=== PATIENT | male | born 1990 | race American Indian/Alaskan Native ===

== ENCOUNTER 2018-06-22 14:27 | Inpatient (IN) | payer SELFPAY ==
[2018-06-22 15:28] LABS: Hematocrit 47.6 % (35.5-45.6); Mean Corpuscular HGB Conc 34 % (32-34); Mean Corpuscular Hemoglobin 32 pg (28-32); Mean Corpuscular Volume 95 fl (84-94); Platelet Count 377 K/mm3 (140-440); Red Blood Count 5.03 M/mm3 (3.65-5.03); Red Cell Distribution Width 13.7 % (13.2-15.2)
[2018-06-22 15:43] LABS: BUN/Creatinine Ratio 4; Blood Urea Nitrogen 4 mg/dL (9-20); Calcium 9.4 mg/dL (8.4-10.2); Hemolysis Index 13
[2018-06-22] MEDS ORDERED: VITAMIN B-1 100 MG, FOLVITE 1 MG, INFUVITE 10 ML, MAGNESIUM SULFATE 2 GM in NACL 0.9% 1... IV ONE (17:06)
[2018-06-22] MEDS ORDERED: ATIVAN IV ONE (17:07)
[2018-06-22] MEDS ORDERED: ATIVAN IV PRN ×3 (17:08)
--- NOTE | 2018-06-22 17:13 | Emergency Department Report ---
HPI - General Chief Complaint: Seizure Time Seen by Provider: 06/22/18 16:58 - HPI HPI: Room 5 The patient is a 27-year-old male presenting with a chief complaint of seizure. The patient has a history of polysubstance abuse including heavy alcohol consumption, Xanax abuse, ecstasy Nelly and cocaine. The patient states he last use Xanax approximately 2-3 days ago (he usually consumes 5 bars daily) and he last consumed alcohol yesterday (usually consumes one cup of liquor and a sixpack of beer daily). Today the patient's significant other witnessed the patient have a generalized tonoclonic seizure in the back of the car lasting approximately 2 minutes. Now the patient complains of a mild headache and pain in the right shoulder. Patient has a history of benzodiazepine/alcohol withdrawal seizures in the past Location: [facility] Duration: 2 minutes Quality: Generalized tonic-clonic Severity: Moderate Modifying factors: [see above] Context: [see above] Mode of transportation: [not driving] ED Past Medical Hx - Past Medical History Hx Seizures: Yes (benzodiazepine withdrawal seizures) - Surgical History Past Surgical History?: No - Family History Family history: no significant - Social History Smoking Status: Current Every Day Smoker (1 pack per day) Substance Use Type: Alcohol (daily. 1 cup of liquor, sixpack of beer), Cocaine , Other (Nelly, ecstasy, Xanax (5 bars daily)) ED Review of Systems ROS: Stated complaint: SEIZURE Other details as noted in HPI Constitutional: no symptoms reported Eyes: denies: eye pain ENT: denies: throat pain Respiratory: no symptoms reported Cardiovascular: denies: chest pain Endocrine: no symptoms reported Gastrointestinal: denies: abdominal pain Musculoskeletal: arthralgia Neurological: headache Physical Exam - Physical Exam Vital Signs: Vital Signs 06/22/18 14:45 Temperature 97.7 F Pulse Rate 103 H Respiratory 16 Rate Blood Pressure 118/85 O2 Sat by Pulse 99 Oximetry Physical Exam: GENERAL: The patient is well-developed well-nourished male sitting on stretcher not appearing to be in acute distress. [] HEENT: Normocephalic. Atraumatic. Extraocular motions are intact. Patient has moist mucous membranes. NECK: Supple. Trachea midline CHEST/LUNGS: Clear to auscultation. There is no respiratory distress noted. HEART/CARDIOVASCULAR: Regular. There is no tachycardia. There is no gallop rub or murmur. ABDOMEN: Abdomen is soft, nontender. Patient has normal bowel sounds. There is no abdominal distention. SKIN: There is no rash. There is no edema. There is no diaphoresis. NEURO: The patient is awake, alert, and oriented. The patient is cooperative. The patient has no focal neurologic deficits. The patient has normal speech. Cranial nerves II through XII grossly intact, no drift MUSCULOSKELETAL: There is no evidence of acute injury. ED Course Vital Signs 06/22/18 14:45 Temperature 97.7 F Pulse Rate 103 H Respiratory 16 Rate Blood Pressure 118/85 O2 Sat by Pulse 99 Oximetry ED Medical Decision Making - Lab Data Result diagrams: 06/22/18 15:05 06/22/18 15:05 - Radiology Data Radiology results: report reviewed (CT head, right shoulder x-ray), image reviewed (CT head, right shoulder x-ray) interpreted by me: Right shoulder x-ray-no acute fracture [facility] [address] [place] [address] Cat Scan Report Signed Patient: JUSTINA GREENE MR#: [id number] : 1990 Acct:[id number] Age/Sex: 27 / M ADM Date: 06/22/18 Loc: ED Attending Dr: Ordering Physician: STEPHON DYE MD Date of Service: 06/22/18 Procedure(s): CT head/brain wo con Accession Number(s): [id number] cc: STEPHON DYE MD FINAL REPORT PROCEDURE: CT head without contrast. TECHNIQUE: Computerized tomography of the head was performed without contrast material. HISTORY: Seizure. COMPARISON: No prior studies are available for comparison. FINDINGS: There is motion artifact on some of the images. The ventricles are normal in size. The loera matter and white matter appear normal. There are no mass lesions. There is no intracranial hemorrhage. The calvarium appears intact. The mastoid air cells and visualized paranasal sinuses are well aerated. IMPRESSION: Normal study. Transcribed By: [facility] Dictated By: SHABNAM HERNANDEZ MD Electronically Authenticated By: SHABNAM HERNANDEZ MD Signed Date/Time: 06/22/181914 DD/ 14 TD/ TT: 06/22/181914 Findings [facility] [address] [place] [address] XRay Report Signed Patient: JUSTINA GREENE MR#: [id number] : 1990 Acct :[id number] Age/Sex: 27 / M ADM Date: 06/22/18 Loc: ED Attending Dr: Ordering Physician: STEPHON DYE MD Date of Service: 06/22/18 Procedure(s): XR shoulder 2 +V RT Accession Number(s): [id number] cc: STEPHON DYE MD Fluoro Time In Minutes: FINAL REPORT EXAM: XR SHOULDER 2+V RT HISTORY: pain after seizure TECHNIQUE: Three views right shoulder PRIORS: None. FINDINGS: No fractures are identified. No dislocation seen. The acromioclavicular joint is intact. Adjacent bony and soft tissue structures are unremarkable. IMPRESSION: Negative shoulder series Transcribed By: ROBERT Dictated By: BRENDEN BARAHONA MD Electronically Authenticated By: BRENDEN BARAHONA MD Signed Date/Time: 06/22/181900 DD/DT : 06/22/181900 TD/TT: 06/22/181900 - Differential Diagnosis withdrawal seizures Critical care attestation.: If time is entered above; I have spent that time in minutes in the direct care of this critically ill patient, excluding procedure time. ED Disposition Clinical Impression: Benzodiazepine withdrawal, Seizure, Contusion of right shoulder Disposition: OP ADMIT IP TO THIS HOSP Is pt being admited?: Yes Condition: Fair Referrals: PRIMARY CARE, [Primary Care Provider] - 3-5 Days Time of Disposition: 19:19 (hospitalist paged (Dr Ovalle))
--- NOTE | 2018-06-22 19:01 | XRay Report ---
FINAL REPORT EXAM: XR SHOULDER 2+V RT HISTORY: pain after seizure TECHNIQUE: Three views right shoulder PRIORS: None. FINDINGS: No fractures are identified. No dislocation seen. The acromioclavicular joint is intact. Adjacent bony and soft tissue structures are unremarkable. IMPRESSION: Negative shoulder series
--- NOTE | 2018-06-22 19:16 | Cat Scan Report ---
FINAL REPORT PROCEDURE: CT head without contrast. TECHNIQUE: Computerized tomography of the head was performed without contrast material. HISTORY: Seizure. COMPARISON: No prior studies are available for comparison. FINDINGS: There is motion artifact on some of the images. The ventricles are normal in size. The loera matter and white matter appear normal. There are no mass lesions. There is no intracranial hemorrhage. The calvarium appears intact. The mastoid air cells and visualized paranasal sinuses are well aerated. IMPRESSION: Normal study.
[2018-06-22] MEDS ORDERED: SODIUM CHLORIDE FLUSH SYRINGE 10 ML IV PRN (22:36)
[2018-06-22] MEDS ORDERED: TYLENOL PO PRN (22:36)
[2018-06-22] MEDS ORDERED: ZOFRAN IV PRN (22:36)
--- NOTE | 2018-06-22 22:37 | History and Physical Report ---
History of Present Illness Date of examination: 06/22/18 History of present illness: 27-year-old man with a history of polysubstance abuse including xanax and alcohol was brought to the emergency room today because he had a seizure. His last use of Xanax was 3 days ago. Patient is now sedated, unable to give a history, review of system PAST MEDICAL HISTORY: Unknown PAST SURGICAL HISTORY: Unknown SOCIAL HISTORY: No alcohol, no drugs, tobacco FAMILY HISTORY: Unknown Medications and Allergies Allergies Allergy/AdvReac Type Severity Reaction Status Date / Time No Known Allergies Allergy Verified 06/22/18 17:29 Active Meds: Active Medications Lorazepam (Ativan) 2 mg IV Q1HR PRN PRN Reason: CIWA-Ar 8-15 Lorazepam (Ativan) 4 mg IV Q1HR PRN PRN Reason: CIWA-Ar 16-25 Lorazepam (Ativan) 4 mg IV Q15MIN PRN PRN Reason: CIWA-Ar >25 Exam - Physical Exam Narrative exam: Gen. appearance: Patient lying in bed, no apparent distress HEENT: Normocephalic, atraumatic, pupils equally round and reactive to light, unable to do extraocular movement , and no sclericterus,. No JVD or thyromegaly or nodule,neck supple, no carotid bruit ,mucous membranes moist, unable to examine oral cavity Heart: S1, S2, regular rate and rhythm Lungs: Clear bilaterally, breathing comfortable Abdomen: Positive bowel sounds, non-tender, nondistended, no organomegaly Extremity:no edema cyanosis, clubbing Skin: no rash, dry, warm Neuro: sedated - Constitutional Vitals: Temp Pulse Resp BP Pulse Ox 98 F 81 16 118/85 98 06/22/18 19:20 06/22/18 19:20 06/22/18 19:20 06/22/18 21:16 06/22/18 21:16 Results - Labs CBC & Chem 7: 06/22/18 15:05 06/22/18 15:05 Labs: Abnormal lab results 06/22/18 06/22/18 06/22/18 Range/Units 15:05 15:05 15:34 Hgb 16.0 H (11.8-15.2) gm/dl Hct 47.6 H (35.5-45.6) % MCV 95 H (84-94) fl Carbon Dioxide 17 L (22-30) mmol/L BUN 4 L (9-20) mg/dL Magnesium 2.90 H (1.7-2.3) mg/dL Total Creatine Kinase (55-170) units/L 06/22/18 Range/Units 15:34 Hgb (11.8-15.2) gm/dl Hct (35.5-45.6) % MCV (84-94) fl Carbon Dioxide (22-30) mmol/L BUN (9-20) mg/dL Magnesium (1.7-2.3) mg/dL Total Creatine Kinase 217 H (55-170) units/L - Imaging and Cardiology EKG: image reviewed Chest x-ray: image reviewed CT Scan - head: report reviewed Assessment and Plan Assessment Benzodiazepine withdrawal Substance abuse Plan Admit to medicine Start IV fluid, CIWA [rptocol with IV ativan DVT prophalaxis
[2018-06-22] MEDS: NACL 0.9% 1000 ML 1,000 ML IV SCH (22:58)
[2018-06-23 06:08] LABS: Basophils # (Auto) 0.1 K/mm3 (0.0-0.1); Basophils % (Auto) 0.7 % (0.0-1.8); Eosinophils # (Auto) 0.2 K/mm3 (0.0-0.4); Eosinophils % (Auto) 2.9 % (0.0-4.3); Hematocrit 40.3 % (35.5-45.6); Hemoglobin 13.6 gm/dl (11.8-15.2); Lymphocytes # (Auto) 3.2 K/mm3 (1.2-5.4); Lymphocytes % (Auto) 39.6 % (13.4-35.0); Mean Corpuscular HGB Conc 34 % (32-34); Mean Corpuscular Hemoglobin 32 pg (28-32); Mean Corpuscular Volume 94 fl (84-94); Monocytes # (Auto) 0.7 K/mm3 (0.0-0.8); Platelet Count 317 K/mm3 (140-440); Red Blood Count 4.28 M/mm3 (3.65-5.03); Red Cell Distribution Width 13.9 % (13.2-15.2)
[2018-06-23] MEDS: NACL 0.9% 1000 ML 1,000 ML IV SCH (06:09)
[2018-06-23 06:31] LABS: BUN/Creatinine Ratio 10; Blood Urea Nitrogen 9 mg/dL (9-20); Calcium 8.4 mg/dL (8.4-10.2); Hemolysis Index 7
[2018-06-23 07:15] LABS: Benzodiazepines Screen,Urine PRESUMPTIVE NEGATIVE; Methadone Screen,Urine PRESUMPTIVE NEGATIVE; Opiate Screen,Urine PRESUMPTIVE NEGATIVE
[2018-06-23 07:37] LABS: Amphetamine Screen,Urine PRESUMPTIVE POSITIVE; Cannabinoid Screen,Urine PRESUMPTIVE POSITIVE; Cocaine Screen,Urine PRESUMPTIVE POSITIVE
[2018-06-23] MEDS ORDERED: LOVENOX SUB-Q SCH (10:00)
[2018-06-23] MEDS: LOVENOX SUB-Q SCH (10:00)
[2018-06-23] MEDS: SODIUM CHLORIDE FLUSH SYRINGE 10 ML IV SCH ×2 (10:02→22:20)
[2018-06-23] MEDS: KEPPRA PO SCH ×2 (14:00→22:20)
--- NOTE | 2018-06-23 16:51 | Progress Note ---
Assessment and Plan Acute seizure due to benzo withdrawl Benzodiazepine withdrawal Substance abuse with xanax, cocaine mild rhabdomyolysis - monitor at medicine - Start IV fluid, CIWA protocol with IV ativan - Obtain MRI/EEG - cover with keppra for now - DVT prophalaxis Subjective Date of service: 06/23/18 Interval history: pt seen and examined states was using xanax often due to recreational purpose had similar episode couple years ago and was treated with keppra that time Objective - Constitutional Vitals: Vital Signs - 12hr 06/23/18 06/23/18 06/23/18 06:06 06:08 08:20 Pulse Rate 77 65 Respiratory 20 18 Rate Blood Pressure 109/68 110/66 O2 Sat by Pulse 100 100 100 Oximetry 06/23/18 06/23/18 06/23/18 10:00 11:39 15:16 Pulse Rate 83 80 Respiratory 18 18 Rate Blood Pressure 112/80 119/85 O2 Sat by Pulse 100 99 99 Oximetry General appearance: Present: no acute distress, well-nourished - EENT Eyes: PERRL, EOM intact ENT: hearing intact, clear oral mucosa Ears: bilateral: normal - Neck Neck: supple, normal ROM - Respiratory Respiratory effort: normal Respiratory: bilateral: CTA - Breasts Breasts: normal - Cardiovascular Rhythm: regular Heart Sounds: Present: S1 & S2. Absent: gallop, rub Extremities: pulses intact, No edema, normal color, Full ROM - Gastrointestinal General gastrointestinal: Present: soft, non-tender, non-distended, normal bowel sounds - Integumentary Integumentary: clear, warm, dry - Musculoskeletal Musculoskeletal: 1, strength equal bilaterally - Neurologic Neurologic: moves all extremities - Psychiatric Psychiatric: memory intact, appropriate mood/affect, intact judgment & insight - Labs CBC & Chem 7: 06/23/18 05:28 06/23/18 05:28 Labs: Abnormal lab results 06/23/18 Range/Units 05:28 Lymph % (Auto) 39.6 H (13.4-35.0) % Davis % (Auto) 9.0 H (0.0-7.3) % - Imaging and cardiology CT Scan - head: report reviewed
[2018-06-24] MEDS: KEPPRA PO SCH (09:14)
[2018-06-24] MEDS: LOVENOX SUB-Q SCH (09:14)
[2018-06-24] MEDS: SODIUM CHLORIDE FLUSH SYRINGE 10 ML IV SCH (09:16)
[2018-06-24 12:44] VITALS: BP 121/80
--- NOTE | 2018-06-24 15:25 | Progress Note ---
Assessment and Plan Acute seizure due to benzo withdrawl Benzodiazepine withdrawal Substance abuse with xanax, cocaine mild rhabdomyolysis - monitor at medicine - Start IV fluid, CIWA protocol with IV ativan - Obtain MRI/EEG - cover with cornelio for now - DVT prophalaxis Subjective Date of service: 06/24/18 Objective - Constitutional Vitals: Vital Signs - 12hr 06/24/18 06/24/18 06/24/18 04:45 08:57 11:18 Temperature 97.9 F 98.2 F Pulse Rate 70 72 Respiratory 20 18 Rate Blood Pressure 111/70 Blood Pressure 117/67 [Left] O2 Sat by Pulse 98 100 100 Oximetry 06/24/18 12:42 Temperature 97.8 F Pulse Rate 71 Respiratory 18 Rate Blood Pressure Blood Pressure 121/80 [Left] O2 Sat by Pulse 100 Oximetry - Labs CBC & Chem 7: 06/23/18 05:28 06/23/18 05:28
[2018-06-24] MEDS ORDERED: ATIVAN IV PRN (15:26)
--- NOTE | 2018-06-24 16:24 | Discharge Summary ---
Providers - Providers Date of Admission: 06/22/18 22:36 Date of discharge: 06/24/18 Attending physician: DAVID CANO Primary care physician: FLAKITA CAIN MD Hospitalization Condition: Fair Hospital course: Discharge diagnosis: Acute seizure due to benzo withdrawl Benzodiazepine withdrawal Substance abuse with xanax, cocaine mild rhabdomyolysis Disposition: DC-07 LEFT AGAINST MED ADVICE Exam - Constitutional Vitals: Temp Pulse Resp BP Pulse Ox 97.8 F 71 18 121/80 100 06/24/18 12:42 06/24/18 12:42 06/24/18 12:42 06/24/18 12:42 06/24/18 12:42 Plan Follow up with: PRIMARY CAREMD [Primary Care Provider] - 3-5 Days Forms: AMA Form
--- NOTE | 2018-06-25 07:39 | Magnetic Resonance Report ---
FINAL REPORT PROCEDURE: MR BRAIN WO/W CON TECHNIQUE: Magnetic resonance imaging of the brain was performed before and after the IV injection of paramagnetic contrast. HISTORY: seizure COMPARISON: 06/22/2018 FINDINGS: Skull base and calvarium: Normal. Paranasal sinuses: The visualized paranasal sinuses are clear. Cerebellum: No evidence of hemorrhage, ischemia or mass . Brainstem: No evidence of hemorrhage, ischemia or mass . Cerebrum: No evidence of hemorrhage, ischemia or mass . Ventricles: Normal in size and morphology for the patient's age. Pituitary gland and sella: Normal. Globes and orbits: Normal. Vasculature: Normal arterial and venous flow voids. Abnormal enhancement: None. Other: None. IMPRESSION: Normal Examination
--- NOTE | 2018-06-25 11:58 | Electroencephalogram Report ---
Electroencephalogram EEG Date of exam: 06/24/18 Description: Preliminary findings: there is 12 Hz alpha activity in the posterior leads and some anterior beta activity. EMG artifact is present at times. With drowsiness and later brief sleep, sleep spindles and K complexes appear. No epileptiform activity was seen. Interpretation: Preliminary reading: Normal wake/sleep EEG. This EEG does not exclude epilepsy of partial onset. Up to 4 EEGs over several months may be needed to capture interictal epileptiform activity.
== END 2018-06-24 15:30 | disposition left against medical advice (07) | DRG 101 ==
LOC: ED 14:27 → 4A 22:36
PROVIDERS: ADMIT Internal Medicine; ATTEND Internal Medicine
DX: R56.9 Unspecified convulsions (principal); F13.239 Sedative, hypnotic or anxiolytic dependence with withdrawal, unspecified; M62.82 Rhabdomyolysis; F19.10 Other psychoactive substance abuse, uncomplicated; F14.10 Cocaine abuse, uncomplicated; S40.011A Contusion of right shoulder, initial encounter; F17.200 Nicotine dependence, unspecified, uncomplicated; Z72.89 Other problems related to lifestyle; Y93.89 Activity, other specified; Y92.89 Other specified places as the place of occurrence of the external cause; Y99.8 Other external cause status
CPT/HCPCS: 36415; 70450; 70553; 80048; 80307; 80320; 82550; 82962; 83735; 85025; 85027; 95819; 96360; A9577; G0480; J1650; J2060; J3411; J3475; J7030